=== PATIENT | female | born 1930 | race Caucasian/White ===

== ENCOUNTER → 2016-12-23 | Outpatient (CLI) | payer OTHER, BC ==
--- NOTE | 2016-12-23 17:03 | MAMMOGRAPHY REPORT ---
BILATERAL DIGITAL SCREENING MAMMOGRAM WITH CAD: 12/23/2016 CLINICAL HISTORY: Routine screening. Patient has no complaints. TECHNIQUE: Current study was also evaluated with a Computer Aided Detection (CAD) system. Bilatera l CC and MLO views were obtained. COMPARISON: Comparison is made to exams dated: 12/18/2015 mammogram, 11/02/2013 mammogram, 12/14/2014 m ammogram, 10/07/2012 mammogram, 09/14/2011 mammogram, and 09/11/2010 mammogram - [facility]. BREAST COMPOSITION: The tissue of both breasts is heterogeneously dense, which may obscure small ma sses. FINDINGS: There are possible grouped calcifications seen within the right upper outer quadrant, for which spot magnification views are recommended for further evaluation. The remainder of both breasts are stable compared to prior exams, without suspicious masses, calcifi cations, or areas of architectural distortion noted. IMPRESSION: ACR BI-RADS CATEGORY 0: INCOMPLETE EVALUATION: NEED ADDITIONAL IMAGING EVALUATION Right upper outer quadrant calcifications, for which additional imaging evaluation is recommended. The patient will be called to schedule an appointment. Approximately 10% of breast cancers are not detected with mammography. A negative mammographic repor t should not delay biopsy if a clinically suggestive mass is present. Diana Jiménez M.D. ah/:12/23/2016 16:46:49 Research Environmental Engineer: Kim TODD)(M), [facility] letter sent: Addl Imaging 0 BI-RADS Code: ACR BI-RADS Category 0: Incomplete Evaluation: Need Additional Imaging Evaluation
== END | disposition home or self-care (01) ==
LOC: C.MAMM 10:22
PROVIDERS: ATTEND Family Medicine
DX: Z12.31 Encounter for screening mammogram for malignant neoplasm of breast (principal); R92.0 Mammographic microcalcification found on diagnostic imaging of breast

== ENCOUNTER → 2017-01-04 | Outpatient (CLI) | payer OTHER, BC ==
--- NOTE | 2017-01-04 16:08 | MAMMOGRAPHY REPORT ---
UNILATERAL RIGHT DIGITAL DIAGNOSTIC MAMMOGRAM: 01/04/2017 CLINICAL HISTORY: 86-year-old woman called back from screening mammography for a possible clustered micro-calcifications in the upper outer posterior right breast. No known family history of breast c ancer. TECHNIQUE: Spot magnification right CC and ML views were obtained. COMPARISON: Comparison is made to exams dated: 12/23/2016 mammogram, 12/18/2015 mammogram, 12/14/2014 m ammogram, and 11/02/2013 mammogram - [facility]. BREAST COMPOSITION: The tissue of the right breast is heterogeneously dense, which may obscure smal l masses. FINDINGS: There is a very faint cluster of punctate microcalcifications in the upper outer middle t o posterior right breastthat are increased in conspicuity comparing to prior exams. The cluster ghanshyam sures approximately 3 mm. There is a relatively stable single linear microcalcification posterior to the faint cluster and a few other punctate microcalcifications in the general area. No obvious ass ociated architectural distortion or mass. The microcalcifications could represent benign fibrocysti c changes but given that mammographic stability is not definitely demonstrated they're indeterminate . Options of close follow-up with repeat mammography in 6 months versus tissue sampling with stereo tactic biopsy were provided to the patient and her daughter. They will consider their options and c all our office to schedule a follow-up appointment. IMPRESSION: ACR BI-RADS CATEGORY 4: SUSPICIOUS 1. There are increasingly conspicuous faint clustered punctate microcalcifications in the upper out er quadrant of the right breast that are indeterminate. Options of short interval follow-up mammogr ams including spot magnification views in 6 months versus tissue sampling via stereotactic guided bi opsy were provided to the patient and her daughter. They will consider the options and call our off ice to schedule a follow-up appointment. If the patient decides on stereotactic guided biopsy, we w ould ideally like to discontinue aspirin 3-5 days prior to biopsy if her doctor deems it is safe. Approximately 10% of breast cancers are not detected with mammography. A negative mammographic repor t should not delay biopsy if a clinically suggestive mass is present. Mckayla Villegas M.D. ay/:01/04/2017 15:52:31 Internet Sales Manager: Kim BISHOP(Phyllis)(M), [facility] letter sent: Abnormal 4/5 BI-RADS Code: ACR BI-RADS Category 4: Suspicious
== END | disposition home or self-care (01) ==
LOC: C.MAMM 13:22
PROVIDERS: ATTEND Family Medicine
DX: R92.0 Mammographic microcalcification found on diagnostic imaging of breast (principal)

== ENCOUNTER → 2017-01-25 | Outpatient (CLI) | payer OTHER, BC ==
--- NOTE | 2017-01-25 13:41 | Discharge Instructions ---
Discharge Instructions Procedure Procedure Date: Jan 25, 2017. Reason for visit: Right Microcalcifications. Discharge Discharge Date: Jan 25, 2017. Discharge Diagnosis: post right breast stereotactic guided biopsy Medications Restart Stopped Medication(s): May restart Aspirin today Instructions Activity Recommendations: Additional Limitations (see below) Return to School/Work: no limitations Recommended Home Diet: No Limitations Provider Instructions: ACTIVITY RECOMMENDATIONS: * No lifting, pushing, pulling or exercising the affected side for three days. RETURN TO SCHOOL/WORK: * You may return to work/school after the procedure, but do not perform any strenuous activities for 24 to 48 hours. MEDICATIONS: * Tylenol (two 325 mg) every four to six hours if needed for mild pain (if not allergic to Tylenol). DIET: * Resume previous diet. SPECIAL CARE INSTRUCTIONS: * Keep biopsy site dry for 24 hours. May shower after 24 hours, but do not soak (bathe) incision. * May remove Tegaderm (plastic patch) tomorrow AFTER showering. * Leave the steri-strips on for one week. Allow the steri-strips to fall off by themselves. If not off after one week, you may remove them. You may place a Bandaid crosswise over the strips, if desired. * Apply ice 10 minutes on and 10 minutes off as needed. * Wear a bra at bedtime to sleep more comfortably for 2-3 days. * Your referring physician should have the results after approximately 5 to 7 business days. * Call for unusual bleeding, fever, drainage, etc or if you have any questions call [phone] during normal business hours or after hours call Dr Villegas, . FOLLOW UP VISIT: Follow-up with Referring Physician as scheduled. Sven Gtz Recommendations: Call your doctor if: * Temperature above 101 degrees * Pain not relieved by pain medicine ordered * There is increased drainage or redness from any incision * You have any unanswered questions or concerns. Your Doctors Instructions noted above were prepared by provider Mckayla Villegas. Patient Signature Section: Patient Instructions Signature Page March Patient (or Guardian) Signature/Date: I have read and understand the instructions given to me by my caregivers. Caregiver/RN/Doctor Signature/Date: The above-named patient and/or guardian has received patient instructions on this date. + Original Patient Signature Page (only) stays with chart. Please make copy for patient.
--- NOTE | 2017-01-28 09:04 | MAMMOGRAPHY REPORT ---
STEREOTACTIC GUIDED BIOPSY RIGHT BREAST: 01/25/2017 CLINICAL HISTORY: Indeterminate clustered microcalcifications in the upper outer quadrant of the rig ht breast. Patient presented for stereotactic biopsy. COMPARISON: Comparison is made to exams dated: 01/04/2017 mammogram, 12/23/2016 mammogram, 12/18/2015 m ammogram, 12/14/2014 mammogram, 11/02/2013 mammogram, and 10/07/2012 mammogram - [facility]. PATIENT CONSENT: After explaining the risks, benefits and alternatives of the procedure to the patie nt, informed consent was obtained both verbally and in writing. Specific risks include: Bleeding, i nfection, puncture of adjacent structure, nontarget biopsy, sampling error, metal allergy and medica tion reaction. PROCEDURE DESCRIPTION: A time-out was performed and the right breast was confirmed as the site of bi opsy. The patient was placed prone on the stereotactic biopsy table and the breast was placed in CC from above compression. A financial analyst intern image was obtained that demonstrated the clustered microcalcificatio ns in question. They are amenable to sterotactic biopsy. Then +15 and -15 stereo pair images were obtained. The calcifications were targeted utilizing the coordinates obtained with a computer. The skin was prepped with Betadine. 1% Lidocaine with and without epinipherine was administered as loca l anesthesia. A small skin incision was made. Through the incision, the needle was inserted to the depth determined by the computer. 10 samples were obtained using a Cicer[employer]siva 9-gauge vacuum-assist ed biopsy device. The specimen radiograph demonstrated several medical collections representative microcalcifications sc attered throughout the samples, therefore, a metallic marker was placed at the biopsy site. There wa s no immediate complication. Hemostasis was achieved after several minutes of manual compression. T he samples were sent to pathology in a single appropriately labeled container. The calcifications w ere not out as punctate calcifications were seen within nearly every core sample. Postprocedure CC and ML views of the right breast demonstrate a new dumbbell-shaped metallic biopsy marker and no significant hematoma in the upper outer middle to posterior breast, at the site of the biopsied clustered calcifications in question. IMPRESSION: STEREOTACTIC GUIDED BIOPSY Status post stereotactic guided biopsy of indeterminate clustered microcalcifications in the right u pper outer quadrant, with biopsy marker placed at the site. Upon review of pathology results, follow-up interval of 6 months versus 12 months will be determined , and an addendum will be made to this report. The patient will receive notification of the biopsy results from her referring physician. Mckayla Villegas M.D. ay/:01/25/2017 13:47:48 Deep Submergence Vehicle Operator: Shanelle TODD)(Jorg[place]), [facility]
--- NOTE | 2017-01-29 07:24 | MAMMOGRAPHY REPORT ---
UNILATERAL RIGHT DIGITAL DIAGNOSTIC MAMMOGRAM: 01/25/2017 CLINICAL HISTORY: Status post stereotactic guided biopsy in the right breast. Please refer to the report from right breast stereotactic biopsy performed at the same time for full detail. IMPRESSION: POST PROCEDURE IMAGING FOR MARKER PLACEMENT Please refer to the report from right breast stereotactic biopsy performed at the same time for full detail. Approximately 10% of breast cancers are not detected with mammography. A negative mammographic repor t should not delay biopsy if a clinically suggestive mass is present. Mckayla Villegas M.D. ay/:01/25/2017 12:47:58 Commissioner Of Conciliation: Shanelle BISHOP(Phyllis)(M), [facility] BI-RADS Code: Post Procedure Imaging For Marker Placement
== END | disposition home or self-care (01) ==
LOC: C.MAMM 12:33
PROVIDERS: ATTEND Family Medicine
DX: R92.0 Mammographic microcalcification found on diagnostic imaging of breast (principal)

== ENCOUNTER → 2017-12-27 | Outpatient (CLI) | payer OTHER, BC ==
--- NOTE | 2017-12-28 15:16 | MAMMOGRAPHY REPORT ---
BILATERAL DIGITAL SCREENING MAMMOGRAM TOMOSYNTHESIS WITH CAD: 12/27/2017 CLINICAL HISTORY: Routine screening. Patient has no complaints. TECHNIQUE: Breast tomosynthesis in addition to standard 2D mammography was performed. Current study was also evaluated with a Computer Aided Detection (CAD) system. COMPARISON: Comparison is made to exams dated: 01/25/2017 mammogram, 01/04/2017 mammogram, 12/23/2016 les mogram, 12/18/2015 mammogram, 12/14/2014 mammogram, and 11/02/2013 mammogram - [facility]. BREAST COMPOSITION: The tissue of both breasts is heterogeneously dense, which may obscure small mas ses. FINDINGS: There is a stable metallic biopsy marker clip in the upper outer quadrant of the right anca st. There are scattered stable microcalcifications in both breasts. No new suspicious mass, archite ctural distortion or cluster of microcalcifications is seen. IMPRESSION: ACR BI-RADS CATEGORY 1: NEGATIVE There is no mammographic evidence of malignancy. A 1 year screening mammogram is recommended. The pa tient will receive written notification of the results. Approximately 10% of breast cancers are not detected with mammography. A negative mammographic report should not delay biopsy if a clinically suggestive mass is present. Mckayla Villegas M.D. ay/:12/27/2017 15:29:36 Newspaper Peddler: Noelle BISHOP(Phyllis)(Jorgito)(BD), [facility] letter sent: Normal 1/2 BI-RADS Code: ACR BI-RADS Category 1: Negative
== END | disposition home or self-care (01) ==
LOC: C.MAMM 10:37
PROVIDERS: ATTEND Family Medicine
DX: Z12.31 Encounter for screening mammogram for malignant neoplasm of breast (principal)